=== PATIENT | female | born 1985 | race Caucasian/White ===

== ENCOUNTER 2019-09-17 20:23 | Emergency (ER) | payer OTHER ==
[2019-09-17 20:29] VITALS: BP 140/79
[2019-09-17] MEDS ORDERED: NORMAL SALINE 1000 ML 1,000 ML IV ONE (20:32)
--- NOTE | 2019-09-17 20:34 | ER Document Report ---
ED Medical Screen (RME) - General Chief Complaint: Stiff Neck Stated Complaint: STIFF NECK,BACK PAIN, HEADACHE, VOMITING Time Seen by Provider: 09/17/19 20:29 Mode of Arrival: Ambulatory Information source: Patient Notes: Otherwise healthy 34-year-old female patient presenting to the emergency department chief complaint of fevers, all over body aches and right-sided neck pain. Patient denies any cough, congestion, recent travel or exposure to any known COVID-19 patients. Patient alert, oriented, no acute distress noted. No nuchal rigidity normal noted. Patient is tachycardic. I have greeted and performed a rapid initial assessment of this patient. A comprehensive ED assessment and evaluation of the patient, analysis of test results and completion of the medical decision making process will be conducted by additional ED providers. I have specifically instructed the patient or family members with the patient to immediately return to any nursing staff should anything change in the patient's condition or with their chief complaint. - Related Data Allergies/Adverse Reactions: Sulfa (Sulfonamide Antibiotics) Allergy (Mild, Verified 09/17/19 20:30) Itching ciprofloxacin [From Cipro] Adverse Reaction (Verified 09/17/19 20:30) Tachycardia Physical Exam - Vital signs Vitals: Temp Pulse Resp BP Pulse Ox 98.4 F 121 H 20 140/79 H 97 09/17/19 20:28 09/17/19 20:28 09/17/19 20:28 09/17/19 20:28 09/17/19 20:28 Course - Vital Signs Vital signs: Temp Pulse Resp BP Pulse Ox 98.4 F 121 H 20 140/79 H 97 09/17/19 20:28 09/17/19 20:28 09/17/19 20:28 09/17/19 20:28 09/17/19 20:28
[2019-09-17 21:47] LABS: ALBUMIN 4.4 g/dL (3.5-5.0); ALKALINE PHOSPHATASE 51 U/L (38-126); ANION GAP 8 (5-19); ASPARTATE AMINO TRANSFERASE 16 U/L (14-36); BILIRUBIN,TOTAL 0.7 mg/dL (0.2-1.3); BLOOD UREA NITROGEN 10 mg/dL (7-20); CALCIUM 9.3 mg/dL (8.4-10.2); CARBON DIOXIDE 21 mmol/L (22-30); CHLORIDE 105 mmol/L (98-107); GLUCOSE 114 mg/dL (75-110); POTASSIUM 3.7 mmol/L (3.6-5.0); TOTAL PROTEIN 7.6 g/dL (6.3-8.2)
[2019-09-17 21:48] LABS: ABSOLUTE BASOPHILS # (AUTO) 0.1 10^3/uL (0.0-0.2); ABSOLUTE LYMPHOCYTES (AUTO) 1.8 10^3/uL (0.5-4.7); ABSOLUTE MONOCYTES (AUTO) 0.5 10^3/uL (0.1-1.4); ABSOLUTE NEUT (AUTO) 5.6 10^3/uL (1.7-8.2); BASOPHILS % (AUTO) 0.8 % (0-2); EOSINOPHILS % (AUTO) 0.5 % (0-6); HEMATOCRIT 37.9 % (36.0-47.0); HEMOGLOBIN 13.5 g/dL (12.0-15.5); LYMPHOCYTES % (AUTO) 22.8 % (13-45); MEAN CORPUSCULAR HEMOGLOBIN 33.7 pg (27.0-33.4); MEAN CORPUSCULAR HGB CONC 35.7 g/dL (32.0-36.0); MEAN CORPUSCULAR VOLUME 94 fl (80-97); MONOCYTES % (AUTO) 6.2 % (3-13); PLATELET COUNT 239 10^3/uL (150-450); RED BLOOD COUNT 4.01 10^6/uL (3.72-5.28); SEGMENTED NEUTROPHILS % (AUTO) 69.7 % (42-78); TOTAL CELLS COUNTED % (AUTO) 100 %
[2019-09-17 22:25] LABS: C-REACTIVE PROTEIN < 5.0 mg/L (<10.0)
[2019-09-17 22:26] LABS: ERYTHROCYTE SEDIMENTATION RATE 22 mm/hr (0-20)
[2019-09-17] MEDS ORDERED: DOXYCYCLINE HYCLATE 100 MG TABLET PO ONE (22:59)
[2019-09-17] MEDS ORDERED: ONDANSETRON 4 MG TAB.RAPDIS PO ONE (22:59)
--- NOTE | 2019-09-17 23:01 | ER Document Report ---
ED General - General Chief Complaint: Stiff Neck Stated Complaint: STIFF NECK,BACK PAIN, HEADACHE, VOMITING Time Seen by Provider: 09/17/19 20:29 Primary Care Provider: NERY ADAMS MD [Primary Care Provider] - Follow up as needed Mode of Arrival: Ambulatory Notes: 34-year-old female presents emergency department complaining of feeling generally achy all over but particularly in her neck, low back, hips and legs. Patient states she has been having a headache for the past few days and it is associated with some dizziness, vomiting starting today along with diarrhea and a fever to 101 and some change today. States that with Tylenol all of her symptoms with the exception of the vomiting go away. Denies any blood in her vomit or in her stool. Patient does note that she found a tick behind her ear yesterday, states that it was quite embedded. States that after it was removed she identified it as a [place] tick. - Related Data Allergies/Adverse Reactions: Sulfa (Sulfonamide Antibiotics) Allergy (Mild, Verified 09/17/19 20:30) Itching ciprofloxacin [From Cipro] Adverse Reaction (Verified 09/17/19 20:30) Tachycardia Home Medications: denies Past Medical History - General Information source: Patient - Social History Smoking Status: Never Smoker Chew tobacco use (# tins/day): No Frequency of alcohol use: None Drug Abuse: None Family History: Hypertension - Mother with hypertension Patient has suicidal ideation: No Patient has homicidal ideation: No Review of Systems - Review of Systems Constitutional: See HPI, Chills, Diaphoresis, Fever, Malaise EENT: No symptoms reported Cardiovascular: See HPI, Dizziness Respiratory: No symptoms reported Gastrointestinal: See HPI, Diarrhea, Vomiting. denies: Abdomen distended, Abdominal pain Genitourinary: No symptoms reported Musculoskeletal: See HPI, Back pain, Joint pain, Neck pain Neurological/Psychological: See HPI, Headaches -: Yes All other systems reviewed and negative Physical Exam - Vital signs Vitals: Temp Pulse Resp BP Pulse Ox 98.4 F 121 H 20 140/79 H 97 09/17/19 20:28 09/17/19 20:28 09/17/19 20:28 09/17/19 20:28 09/17/19 20:28 Interpretation: Hypertensive, Tachycardic - Notes Notes: GENERAL: Alert, interacts well. No acute distress. HEAD: Normocephalic, atraumatic EYES: Pupils equal, round and reactive to light, extraocular movements intact. Able to flex, extend, side bend and rotate her neck without any pain. Negative Kernig's and Brudzinski sign. ENT: Oral mucosa moist, tongue midline. Nares patent, no nasal septal hematoma, TMs intact. No cobblestoning in the posterior oropharynx. NECK: Full range of motion, supple, trachea midline. LUNGS: Clear to auscultation bilaterally, no wheezes, rales or rhonchi, no respiratory distress. HEART: Mildly tachycardic rate and rhythm, no murmurs, gallops, rubs. ABDOMEN: Soft, nontender, nondistended, bowel sounds present in all 4 quadrants. EXTREMITIES: Moves all 4 extremities spontaneously, no edema, radial and dorsalis pedis pulses 2/4 bilaterally. No cyanosis. NEUROLOGICAL: Alert and oriented x3, normal speech, cranial nerves II through XII grossly intact, biceps and patellar DTRs 2+ bilaterally. PSYCH: Normal mood, normal affect. SKIN: Warm, Dry, normal turgor, no rashes or lesions noted. Course - Re-evaluation Re-evalutation: 09/18/19 00:59 CBC unremarkable, CMP shows slightly low sodium, slightly low CO2 otherwise unremarkable, CRP undetectable, ESR slightly elevated, urinalysis shows 80 ketones and large leukocyte esterase, 29 WBCs, 5 squamous epithelial cells. This may be contamination but seeing as the patient has fever and muscle aches including into her back I feel it is prudent to treat this with antibiotics. Patient was initially given a dose of doxycycline here to prevent transmission o f Lyme's disease. I will continue to use doxycycline by mouth as an outpatient for urinary tract infection. Flu swabs are negative. Patient has been tested for coronavirus. Patient will be discharged to home. Has been instructed on self quarantine. Very low suspicion for meningitis as the patient has had the symptoms for several days, she has no meningismus, she is able to move her neck and full range of motion. Discussed the very low likelihood of meningitis at this point given the duration of her symptoms. Patient is agreeable to not getting a lumbar puncture at this time. - Vital Signs Vital signs: Temp Pulse Resp BP Pulse Ox 98.4 F 121 H 9 L 140/79 H 97 09/17/19 20:28 09/17/19 20:28 09/17/19 23:00 09/17/19 20:28 09/17/19 20:28 - Laboratory Result Diagrams: 09/17/19 21:01 09/17/19 21:01 Laboratory results interpreted by me: 09/17/19 09/17/19 09/17/19 21:01 21:01 22:41 MCH 33.7 H ESR 22 H Sodium 134.2 L Carbon Dioxide 21 L Glucose 114 H Urine Ketones 80 H Ur Leukocyte Esterase LARGE H Discharge - Discharge Clinical Impression: Urinary tract infection Qualifiers: Urinary tract infection type: acute cystitis Hematuria presence: without hematuria Qualified Code(s): N30.00 - Acute cystitis without hematuria Tick bite of head Qualifiers: Encounter type: initial encounter Qualified Code(s): S00.96XA - Insect bite (nonvenomous) of unspecified part of head, initial encounter; W57.XXXA - Bitten or stung by nonvenomous insect and other nonvenomous arthropods, initial encount er Condition: Stable Disposition: HOME, SELF-CARE Additional Instructions: Your flu swabs were negative. You have been tested for coronavirus (COVID 19), if simply walking across the room makes you feel like you are going to pass out or like you just walked up 2 flights of steps please return to the emergency department. Please let any healthcare personnel that you see know that you have been tested for coronavirus. This includes if you need to return to the emergency department. You were tested for coronavirus (COVID 19) but these results may take 7 days or more to come back. Please stay in your house until they are resulted back or until you have been completely symptom-free for at least 3 days. You do appear to have a mild urinary tract infection on your urinalysis today. This may be what is causing your fever and your muscle aches. Please take the doxycycline twice a day for the next 5 days until it is gone. This will also help to prevent you from developing Lyme's disease. Prescriptions: Doxycycline Hyclate [Vibramycin 100 mg Tablet] 100 mg PO BID #10 tablet Referrals: NERY ADAMS MD [Primary Care Provider] - Follow up as needed
[2019-09-17 23:15] LABS: APPEARANCE,URINE SLIGHTLY-CLOUDY; BILIRUBIN,URINE NEGATIVE (NEGATIVE); COLOR,URINE YELLOW; GLUCOSE, URINE NEGATIVE (NEGATIVE); KETONES,URINE 80 mg/dL (NEGATIVE); LEUKOCYTE ESTERASE,URINE LARGE (NEGATIVE); NITRITE,URINE NEGATIVE (NEGATIVE); PROTEIN,URINE NEGATIVE (NEGATIVE); URINE SPECIFIC GRAVITY 1.015; UROBILINOGEN,URINE NEGATIVE mg/dL (<2.0)
[2019-09-17 23:42] LABS: A TYPE INFLUENZA AG NEGATIVE (NEGATIVE); B INFLUENZA AG NEGATIVE (NEGATIVE)
[2019-09-18] MEDS ORDERED: ONDANSETRON ODT 4 MG TAB (6 TAB/ER DISP) PO PRN (01:23)
== END 2019-09-18 02:07 | disposition home or self-care (01) ==
LOC: ER 20:23
DX: N30.00 Acute cystitis without hematuria (principal); S00.96XA Insect bite (nonvenomous) of unspecified part of head, initial encounter; Z20.828 Contact with and (suspected) exposure to other viral communicable diseases; M43.6 Torticollis; R51 Headache; R11.10 Vomiting, unspecified; R42 Dizziness and giddiness; W57.XXXA Bitten or stung by nonvenomous insect and other nonvenomous arthropods, initial encounter; Z88.2 Allergy status to sulfonamides; Z88.3 Allergy status to other anti-infective agents
CPT/HCPCS: 99283; 96360; 36415; 87086; 84703; 85025; 85652; 87635; 86140; 80053; 81001; 87804; S0119; J7030

== ENCOUNTER 2019-09-24 12:29 | Emergency (ER) | payer OTHER ==
[2019-09-24] MEDS ORDERED: METOCLOPRAMIDE HCL INJ/PF 10 MG/2 ML SDV IV ONE (12:39)
[2019-09-24] MEDS ORDERED: NORMAL SALINE 1000 ML 1,000 ML IV ONE (12:39)
[2019-09-24 12:52] LABS: ABSOLUTE BASOPHILS # (AUTO) 0.1 10^3/uL (0.0-0.2); ABSOLUTE EOSINOPHILS # (AUTO) 0.1 10^3/uL (0.0-0.6); ABSOLUTE LYMPHOCYTES (AUTO) 1.2 10^3/uL (0.5-4.7); ABSOLUTE MONOCYTES (AUTO) 0.8 10^3/uL (0.1-1.4); ABSOLUTE NEUT (AUTO) 4.3 10^3/uL (1.7-8.2); BASOPHILS % (AUTO) 1.4 % (0-2); EOSINOPHILS % (AUTO) 0.9 % (0-6); HEMATOCRIT 41.9 % (36.0-47.0); LYMPHOCYTES % (AUTO) 19.2 % (13-45); MEAN CORPUSCULAR HEMOGLOBIN 33.7 pg (27.0-33.4); MEAN CORPUSCULAR HGB CONC 35.8 g/dL (32.0-36.0); MEAN CORPUSCULAR VOLUME 94 fl (80-97); MONOCYTES % (AUTO) 12.4 % (3-13); PLATELET COUNT 306 10^3/uL (150-450); RED BLOOD COUNT 4.44 10^6/uL (3.72-5.28); RED CELL DISTRIBUTION WIDTH 12.2 % (11.5-14.0); SEGMENTED NEUTROPHILS % (AUTO) 66.1 % (42-78); TOTAL CELLS COUNTED % (AUTO) 100 %; WHITE BLOOD COUNT 6.4 10^3/uL (4.0-10.5)
[2019-09-24 12:54] LABS: APPEARANCE,URINE SLIGHTLY-CLOUDY; BILIRUBIN,URINE NEGATIVE (NEGATIVE); COLOR,URINE YELLOW; GLUCOSE, URINE NEGATIVE (NEGATIVE); KETONES,URINE 20 mg/dL (NEGATIVE); LEUKOCYTE ESTERASE,URINE TRACE (NEGATIVE); NITRITE,URINE NEGATIVE (NEGATIVE); PROTEIN,URINE 30 mg/dL (NEGATIVE); UROBILINOGEN,URINE NEGATIVE mg/dL (<2.0)
[2019-09-24 13:16] LABS: ALBUMIN 4.7 g/dL (3.5-5.0); ALKALINE PHOSPHATASE 45 U/L (38-126); ANION GAP 9 (5-19); ASPARTATE AMINO TRANSFERASE 16 U/L (14-36); BILIRUBIN,TOTAL 0.5 mg/dL (0.2-1.3); BLOOD UREA NITROGEN 21 mg/dL (7-20); CALCIUM 9.8 mg/dL (8.4-10.2); CARBON DIOXIDE 29 mmol/L (22-30); CHLORIDE 99 mmol/L (98-107); GLUCOSE 123 mg/dL (75-110); POTASSIUM 4.3 mmol/L (3.6-5.0)
--- NOTE | 2019-09-24 14:50 | ER Document Report ---
ED GI/ - General Chief Complaint: Nausea/Vomiting Stated Complaint: VOMITNG Time Seen by Provider: 09/24/19 12:35 Primary Care Provider: NERY ADAMS MD [Primary Care Provider] - Follow up in 3-5 days Notes: Patient is a 34-year-old female who presents emergency department with a chief complaint of a stiff neck, body aches, nausea, vomiting, and generally not feeling well. She states that she started to have her symptoms about 10 days ago. She was seen here in the emergency department and was diagnosed with a urinary tract infection. She was started on doxycycline and had 6 days worth of doxycycline and saw her primary care provider because she was not feeling any better. She was then switched over to Augmentin. She is had 1 dose of she had 1 days worth of Augmentin. She is currently on her menstrual cycle. - Related Data Allergies/Adverse Reactions: Sulfa (Sulfonamide Antibiotics) Allergy (Mild, Verified 09/17/19 20:30) Itching ciprofloxacin [From Cipro] Adverse Reaction (Verified 09/17/19 20:30) Tachycardia Past Medical History - Social History Smoking Status: Never Smoker Chew tobacco use (# tins/day): No Frequency of alcohol use: None Drug Abuse: None Family History: Hypertension - Mother with hypertension Patient has suicidal ideation: No Patient has homicidal ideation: No Review of Systems - Review of Systems Notes: REVIEW OF SYSTEMS: CONSTITUTIONAL : Denies recent illness. Denies recent unintentional weight loss. See HPI. EENT: Denies eye, ear, throat, or mouth pain, discharge, or symptoms. Denies nasal or sinus congestion. CARDIOVASCULAR: Denies chest pain. RESPIRATORY: Denies shortness of breath, cough, congestion, difficulty breathing, or wheezing. GASTROINTESTINAL: See HPI. GENITOURINARY: Denies difficulty urinating, burning, blood in urine, urgency or frequency. BARREL DEDENTING MACHINE OPERATOR: See HPI. MUSCULOSKELETAL: See HPI. Denies joint pain or swelling. SKIN: Denies rash, itchiness, or lesions HEMATOLOGIC : Denies easy bruising or bleeding. LYMPHATIC: Denies swollen, painful, enlarged glands. NEUROLOGICAL: Denies no numbness or tingling denies weakness. Denies headache. Denies altered mental status. Denies alteration in speech. PSYCHIATRIC: Denies stress, anxiety, alteration in sleep patterns, or depression. All other systems reviewed and negative. Physical Exam - Vital signs Vitals: Temp Pulse Resp BP Pulse Ox 99.3 F 132 H 20 118/79 97 09/24/19 12:57 09/24/19 12:57 09/24/19 12:57 09/24/19 12:57 09/24/19 12:57 - Notes Notes: PHYSICAL EXAMINATION: GENERAL: Appears well, healthy, well-nourished, no acute distress. HEAD: Normocephalic, atraumatic. EYES: PERRL, conjunctiva normal, all extraocular movements intact, sclera nonicteric ENT: Moist mucous membranes. NECK: Supple, no noticeable swelling, redness, rash. Normal range of motion. LUNGS: Equal breath sounds bilaterally and clear to auscultation. No wheezes rales or rhonchi. CARDIOVASCULAR: S1-S2, regular rate, regular rhythm. Radial pulses 2+, normal. ABDOMEN: Normoactive bowel sounds. Soft, nontender, no guarding, no rebound tenderness, and no masses palpated. EXTREMITIES: Normal strength and range of motion, no pitting or edema. No cyanosis. NEUROLOGICAL: Moves all extremities upon command. Strength 5/5 in all extremities. PSYCH: Normal mood, normal affect. SKIN: Warm, dry. No rash, lesions, ulcerations noted. Normal skin turgor. BARREL DEDENTING MACHINE OPERATOR: Cervical motion tenderness; no adenexal tenderness. Course - Re-evaluation Re-evalutation: 09/24/19 15:05 Discussed this case with Dr. Desai. He is recommending the patient have a pelvic exam done. He does not believe the patient has 09/24/19 15:46 Pelvic exam done by myself with DULCE Abbasi at bedside. Patient had mild cervical motion tenderness. No adenexal tenderness noted. Patient will be sent for a transvaginal ultrasound. 09/24/19 16:49 Patient's transvaginal ultrasound shows that she has an hypoechoic mass at the cervix, but this is most likely a blood clot, as I did her pelvic exam and saw that she did have a blood clot at that area. Right ovary has normal flow and no cyst or abscess noted. Left ovary was not visualized. I have a very low suspicion for an abscess on that side, as the patient did not have any adnexal tenderness. She has 3+ epithelial cells and 3+ bacteria noted on her wet mount. No yeast or trichomonas noted. She received a gram of Rocephin here in the emergency department. Gonorrhea and Chlamydia are pending. If she test pos itive for chlamydia, she will be notified. Follow-up precautions were given. Verbal discharge instructions were given to the patient. They verbalized understanding. They are stable for discharge. - Vital Signs Vital signs: Temp Pulse Resp BP Pulse Ox 100.1 F 92 18 135/97 H 100 09/24/19 16:43 09/24/19 16:43 09/24/19 16:43 09/24/19 16:43 09/24/19 16:43 - Laboratory Result Diagrams: 09/24/19 12:32 09/24/19 12:32 Laboratory results interpreted by me: 09/24/19 09/24/19 09/24/19 12:32 12:32 12:32 MCH 33.7 H Sodium 136.6 L BUN 21 H Glucose 123 H Urine Protein 30 H Urine Ketones 20 H Urine Blood MODERATE H Ur Leukocyte Esterase TRACE H Discharge - Discharge Clinical Impression: Bacterial vaginosis Fever Qualifiers: Fever type: unspecified Qualified Code(s): R50.9 - Fever, unspecified Condition: Stable Disposition: HOME, SELF-CARE Additional Instructions: You have an overgrowth of natural vaginal bacteria, called bacterial vaginosis. You are being treated with an antibiotic called metronidazole. Do not drink alcohol while taking this medication. Complete all of the antibiotic even if your symptoms have resolved. Return for abdominal pain, vomiting, fever of greater than 101F, or any other symptoms that are worrisome to you. Please follow-up with your CASINO C[employer]IER MANAGER or primary care doctor as needed. Continue your Augmentin. Follow-up with your primary care provider. Make sure you stay well-hydrated. Drink plenty of fluids. Take Zofran or Reglan as needed. You may alternate the medications. Take 1000 mg of Tylenol every 6 hours as needed for pain or fever. Prescriptions: Metronidazole [Metrogel 0.75% Vaginal Gel] 5 applic VG QHS 5 Days #1 tube Metoclopramide HCl [Reglan 10 mg Tablet] 1 - 2 tab PO ASDIR PRN #25 tablet PRN Reason: Ondansetron [Zofran Odt 4 mg Tablet] 1 - 2 tab PO Q4H PRN #15 tab.rapdis PRN Reason: For Nausea/Vomiting Referrals: NERY ADAMS MD [Primary Care Provider] - Follow up in 3-5 days
[2019-09-24 15:51] LABS: BACTERIA (WET MOUNT) 3+ BACTERIA SEEN; EPITHELIALS (WET MOUNT) 3+ EPITHELIALS SEEN; RBCS (WET MOUNT) 1+ RBCS SEEN; T.VAGINALIS (WET MOUNT) NO TRICHOMONAS SEEN; WBCS (WET MOUNT) 3+ WBCS SEEN; YEAST (WET MOUNT) NO YEAST SEEN
[2019-09-24] MEDS ORDERED: CEFTRIAXONE 1 GM/D5W RTU 1 GM/50 ML RTUPB IV ONE (15:54)
--- NOTE | 2019-09-24 16:29 | RADIOLOGY REPORT (SQ) ---
EXAM DESCRIPTION: U/S NON OB PEL TV W/DOPPLER IMAGES COMPLETED DATE/TIME: 09/24/2019 4:19 pm REASON FOR STUDY: pelvic pain; fever; r/o tubo-ovarian abscess COMPARISON: None. TECHNIQUE: Dynamic and static grayscale images acquired of the pelvis via transvaginal approach and recorded on PACS. Additional selected color Doppler and spectral images recorded. LIMITATIONS: None. FINDINGS: UTERUS: Contour normal. No mass. ENDOMETRIAL STRIPE: No focal or generalized thickening. No masses. CERVIX: The cervix measures 2.4 cm in length. A hypoechoic 1.5 x 1.9 x 1.3 cm mass is identified wi thin the cervix. No blood flow demonstrated. Considerations for this finding includes possible bloo d clot, inflammatory mass, fibroid, polyp, as well as other underlying pathology. RIGHT OVARY AND DOPPLER: Normal size. No worrisome masses. Normal arterial vascular flow without evid ence for torsion. LEFT OVARY AND DOPPLER: Not visualized due to overlying bowel gas. FREE FLUID: None noted. OTHER: No other significant finding. MEASUREMENTS: UTERUS: 7.3 x 3.2 x 4.5 cm ENDOMETRIAL STRIPE: 7.0 mm RIGHT OVARY: 2.7 x 1.8 x 3.2 cm LEFT OVARY: Not visualized IMPRESSION: 1. A hypoechoic mass is located within the cervix which is avascular in appearance. Co nsiderations for this finding includes possible inflammatory mass, blood clot, fibroid, polyp, as wel l as other underlying pathology. Correlation suggested. 2. The left ovary is not visualized due to overlying bowel gas. TECHNICAL DOCUMENTATION: JOB ID: [id number] 2010 [employer]- All Rights Reserved Reading location - IP/workstation name: [email or web address]
[2019-09-24 16:43] VITALS: BP 135/97
[2019-09-24] MEDS ORDERED: ACETAMINOPHEN 325 MG TABLET PO ONE (16:54)
[2019-09-24 17:18] LABS: CHLAM PCR NOT DETECTED (NOT DETECT)
== END 2019-09-24 17:10 | disposition home or self-care (01) ==
LOC: ER 12:29
DX: N76.0 Acute vaginitis (principal); B96.89 Other specified bacterial agents as the cause of diseases classified elsewhere; R50.9 Fever, unspecified; R11.2 Nausea with vomiting, unspecified; M43.6 Torticollis
CPT/HCPCS: 99283; 96361; 96375; 96365; 36415; 87210; 83690; 84703; 85025; 86308; 80053; 81001; 87491; 87591; 76830; 93976; J2765; J7030; J0696